=== PATIENT | male | born 1975 | race Hispanic/Latino ===

== ENCOUNTER → 2019-10-11 | Outpatient (CLI) | payer OTHER ==
--- NOTE | 2019-10-11 12:06 | Diagnostic Imaging Report ---
Right shoulder, 2 views Clinical indications: Shoulder pain Comparison: None Findings: 2 views of the right shoulder were obtained. There is no radiographic evidence of acute fracture or dislocation. The glenohumeral and acromioclavicular joints are intact. The visualized portions of the right lung are clear. Impression: Normal radiographic evaluation of the right shoulder. Signed by: Shola Real MD on 10/11/2019 12:02 PM
== END ==
LOC: RAD 10:55
PROVIDERS: ATTEND Family Medicine
DX: M25.511 Pain in right shoulder (principal)